=== PATIENT | male | born 1975 ===

== ENCOUNTER 2016-09-27 14:05 | Emergency (ER) | payer SELFPAY ==
[2016-09-27 14:45] VITALS: BP 110/82
--- NOTE | 2016-09-27 15:36 | UC ---
Throat Pain/Nasal Mati HPI - HPI Summary HPI Summary: 41 yo male with sore throat and sinus pressure and pain for 1-2 days chills diarrhea x 1 - History of Current Complaint Chief Complaint: UCRespiratory Stated Complaint: SORE THROAT DIARRHEA Time Seen by Provider: 09/27/16 15:25 Hx Obtained From: Patient Onset/Duration: Gradual Onset, Lasting Days Severity: Moderate Pain Intensity: 4 Pain Scale Used: 0-10 Numeric Cough: Nonproductive Associated Signs & Symptoms: Positive: Sinus Discomfort, Nasal Discharge - Epiglottits Risk Factors Epiglottis Risk Factors: Negative - Allergies/Home Medications Allergies/Adverse Reactions: Allergies Allergy/AdvReac Type Severity Reaction Status Date / Time No Known Allergies Allergy Verified 09/27/16 14:45 PMH/Surg Hx/FS Hx/Imm Hx Previously Healthy: Yes - Surgical History Surgical History: None - Family History Known Family History: Positive: Cardiac Disease, Hypertension, Diabetes - Social History Alcohol Use: Occasionally Substance Use Type: None Smoking Status (MU): Former Smoker Review of Systems Constitutional: Chills, Fatigue Skin: Negative Eyes: Negative ENT: Sore Throat, Nasal Discharge Respiratory: Cough Cardiovascular: Negative Gastrointestinal: Diarrhea - x 1 Genitourinary: Negative Motor: Negative Neurovascular: Negative Musculoskeletal: Negative Neurological: Negative Psychological: Negative All Other Systems Reviewed And Are Negative: Yes Physical Exam Triage Information Reviewed: Yes Appearance: Well-Appearing, No Pain Distress, Well-Nourished Vital Signs: Initial Vital Signs Temp 99.5 F 09/27/16 14:42 Pulse 80 09/27/16 14:42 Resp 16 09/27/16 14:42 BP 110/82 09/27/16 14:42 Pulse Ox 98 09/27/16 14:42 Eye Exam: Normal Eyes: Positive: Conjunctiva Clear ENT: Positive: Hearing grossly normal, Pharyngeal erythema, Nasal congestion, Nasal drainage, TMs normal. Negative: Tonsillar exudate, Trismus, Muffled/ hoarse voice Dental: Negative: Dental Fracture @, Abscess @ Neck: Positive: Supple, Nontender, No Lymphadenopathy Respiratory: Positive: Lungs clear, Normal breath sounds, No respiratory distress Cardiovascular: Positive: RRR, No Murmur Abdomen Description: Positive: Nontender, No Organomegaly. Negative: CVA Tenderness (R), CVA Tenderness (L) Bowel Sounds: Positive: Present Musculoskeletal: Positive: ROM Intact, No Edema Neurological: Positive: Alert Psychological Exam: Normal Skin Exam: Normal Throat Pain/Nasal Course/Dx - Differential Dx/Diagnosis Provider Diagnoses: acute pharyngitis. sinusitis Discharge - Discharge Plan Condition: Stable Disposition: HOME Prescriptions: Cefuroxime Axetil [Ceftin 250 MG] 250 mg PO BID #20 tab Patient Education Materials: Sinusitis (ED) Forms: *Work Release Additional Instructions: rest fluids warm facial compresses recheck in 5 days if not better
== END 2016-09-27 15:50 | disposition home or self-care (01) ==
LOC: UCEAST 14:05
DX: J02.9 Acute pharyngitis, unspecified (principal); J32.9 Chronic sinusitis, unspecified; Z87.891 Personal history of nicotine dependence
CPT/HCPCS: 99202; G0463

== ENCOUNTER 2016-10-07 20:24 | Inpatient (IN) | payer SELFPAY ==
[2016-10-07] MEDS ORDERED: NS 0.9% 1000 ML* 1,000 ML IV ONE (21:09)
[2016-10-07] MEDS ORDERED: Ondansetron INJ* 2 MG/ML VIAL IV ONE (21:09)
[2016-10-07] MEDS ORDERED: Morphine INJ* 4 MG/ML 1 ML CARPUJECT IV ONE (21:09)
[2016-10-07 22:03] LABS: Hematocrit 43 % (42-52); Hemoglobin 14.5 g/dl (14.0-18.0); Mean Corpuscular HGB Conc 34 g/dl (31-36); Mean Corpuscular Hemoglobin 31 pg (27-31); Mean Corpuscular Volume 91 fL (80-94); Mean Platelet Volume 8 um3 (7.4-10.4); Red Blood Count 4.73 10^6/ul (4.0-5.4); Red Cell Distribution Width 13 % (10.5-15); White Blood Count 18.2 10^3/ul (3.5-10.8)
[2016-10-07 22:05] LABS: Add Diff/Slide Review? Slide Review Added; Comments Flag Yes; Urine Bilirubin Negative (Negative); Urine Glucose Negative (Negative); Urine Nitrite Negative (Negative)
[2016-10-07 22:15] LABS: Albumin 4.1 g/dL (3.2-5.2); BUN/Creatinine Ratio 17.1 (8-20); Calcium 9.1 mg/dL (8.6-10.3); EGFR African American 133.2 (>60); EGFR Non-African American 103.5 (>60); Globulin 2.8 g/dL (2-4); Potassium 3.5 mmol/L (3.5-5.0); Total Bilirubin 0.8 mg/dL (0.2-1.0); Total Protein 6.9 g/dL (6.4-8.9)
[2016-10-07] MEDS ORDERED: Iohexol 300* (CONTRAST) 10 ML SDV IV ONE (22:52)
--- NOTE | 2016-10-07 22:52 | RAD ---
Indication: Left lower quadrant pain. 2 views of the chest including dual energy PA views demonstrate no mediastinal shift. Heart is of normal size and configuration. Lung bhatti demonstrate no pleural fluid, pneumonia or pneumothorax. IMPRESSION: No active cardiopulmonary disease is noted.
[2016-10-08] MEDS ORDERED: Levofloxacin 500 MG IVPREMIX(* 500 MG/100 ML BAG IVPB ONE (00:31)
[2016-10-08] MEDS ORDERED: metroNIDAZOLE IV 500 MG/100ML* 500 MG/100 ML BAG IVPB ONE (00:32)
--- NOTE | 2016-10-08 00:49 | HP ---
H&P (Free Text) History and Physical: PCP: none Date/Time of Evaluation: 10/08/2016 0200 CC: LLQ abdominal pain HPI: Mr Lozano is a 41YO healthy male finishing a course of cefuroxime for acute sinusitis who presents reporting onset 10/07 AM of LLQ cramping abdominal pain which over the course of the morning became severe and associated with a fever of 101 for which he presents. He has had some nausea and diarrhea, but no emesis , chest pain, SOB, or other issues. He denies black or bloody diarrhea. Work up reveals sigmoid diverticulitis on CT which failed his course of cefuroxime prompting a request for admission. 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 SocHx: former social smoker, occasional light alcohol, daily marijuana; works as a hospital security officer; full code status FamHx: Mother: diverticulitis ROS: as above, otherwise reviewed and all were negative Constitutional: NAD, normally developed, well-nourished white male vitals: Vital Signs Temp 37.5 C 10/08/16 01:59 Pulse 85 10/08/16 00:30 Resp 16 10/08/16 01:12 BP 115/66 10/08/16 00:30 Pulse Ox 94 10/08/16 00:30 Intake & Output 10/07/16 10/07/16 10/08/16 11:59 23:59 11:59 Intake Total 1002 100 Balance 1002 100 Weight 72.575 kg Intake: IV Fluids 1002 100 HEENM: atraumatic; sclera/conjunctiva: non-icteric/clear; hearing: intact; oropharynx: clear, mucosa moist Neck: soft tissue: non-tender; thyroid: normal Pulmonary: clear to auscultation bilaterally, good aeration, no accessory muscle use CV: RR/RR, normal S1S2, no carotid bruit, no jugular venous distention, 2+ B DP/ PT, no edema Abdominal: soft, non-distended, moderate to severe LLQ with light rebound and voluntary guarding but no rigidity, normoactive bowel sounds, no hepatosplenomegaly or masses, no costovertebral angle tenderness Musculoskeletal: general: grossly intact; gait: stable Integumental: normal appearance and texture of exposed skin Psychiatric orientation: AA&O to PPTS affect: calm mood: pleasant eye contact: good content: reliable responses: timely insight: good Testing: Lab Results 10/07/16 10/07/16 10/07/16 Range/Units 21:25 21:25 21:25 WBC 18.2 H (3.5-10.8) 10^3/ul RBC 4.73 (4.0-5.4) 10^6/ul Hgb 14.5 (14.0-18.0) g/dl Hct 43 (42-52) % MCV 91 (80-94) fL MCH 31 (27-31) pg MCHC 34 (31-36) g/dl RDW 13 (10.5-15) % Plt Count 348 (150-450) 10^3/ul MPV 8 (7.4-10.4) um3 Neut % (Auto) 82.4 (38-83) % Lymph % (Auto) 6.7 L (25-47) % [place] % (Auto) 9.7 H (1-9) % Eos % (Auto) 1.0 (0-6) % Baso % (Auto) 0.2 (0-2) % Absolute Neuts (auto) 15.0 H (1.5-7.7) 10^3/ul Absolute Lymphs (auto) 1.2 (1.0-4.8) 10^3/ul Absolute Monos (auto) 1.8 H (0-0.8) 10^3/ul Absolute Eos (auto) 0.2 (0-0.6) 10^3/ul Absolute Basos (auto) 0 (0-0.2) 10^3/ul Absolute Nucleated RBC 0 10^3/ul Nucleated RBC % 0 INR (Anticoag Therapy) (0.89-1.11) APTT (26.0-36.3) seconds Sodium 134 (133-145) mmol/L Potassium 3.5 (3.5-5.0) mmol/L Chloride 101 (101-111) mmol/L Carbon Dioxide 24 (22-32) mmol/L Anion Gap 9 (2-11) mmol/L BUN 14 (6-24) mg/dL Creatinine 0.82 (0.67-1.17) mg/dL Est GFR ( Amer) 133.2 (>60) Est GFR (Non-Af Amer) 103.5 (>60) BUN/Creatinine Ratio 17.1 (8-20) Glucose 92 (70-100) mg/dL Lactic Acid (0.5-2.0) mmol/L Calcium 9.1 (8.6-10.3) mg/dL Total Bilirubin 0.80 (0.2-1.0) mg/dL AST 18 (13-39) U/L ALT 21 (7-52) U/L Alkaline Phosphatase 54 (34-104) U/L Total Protein 6.9 (6.4-8.9) g/dL Albumin 4.1 (3.2-5.2) g/dL Globulin 2.8 (2-4) g/dL Albumin/Globulin Ratio 1.5 (1-3) Lipase 21 (11.0-82.0) U/L Urine Color Yellow Urine Appearance Clear Urine pH 6.0 (5-9) Ur Specific [place] 1.017 (1.010-1.030) Urine Protein Negative (Negative) Urine Ketones Trace H (Negative) Urine Blood Negative (Negative) Urine Nitrate Negative (Negative) Urine Bilirubin Negative (Negative) Urine Urobilinogen Negative (Negative) Ur Leukocyte Esterase Negative (Negative) Urine Glucose Negative (Negative) Influenza A (Rapid) (Negative) Influenza B (Rapid) (Negative) 10/07/16 10/07/16 10/07/16 Range/Units 21:25 21:25 22:07 WBC (3.5-10.8) 10^3/ul RBC (4.0-5.4) 10^6/ul Hgb (14.0-18.0) g/dl Hct (42-52) % MCV (80-94) fL MCH (27-31) pg MCHC (31-36) g/dl RDW (10.5-15) % Plt Count (150-450) 10^3/ul MPV (7.4-10.4) um3 Neut % (Auto) (38-83) % Lymph % (Auto) (25-47) % [place] % (Auto) (1-9) % Eos % (Auto) (0-6) % Baso % (Auto) (0-2) % Absolute Neuts (auto) (1.5-7.7) 10^3/ul Absolute Lymphs (auto) (1.0-4.8) 10^3/ul Absolute Monos (auto) (0-0.8) 10^3/ul Absolute Eos (auto) (0-0.6) 10^3/ul Absolute Basos (auto) (0-0.2) 10^3/ul Absolute Nucleated RBC 10^3/ul Nucleated RBC % INR (Anticoag Therapy) 0.97 (0.89-1.11) APTT 27.4 (26.0-36.3) seconds Sodium (133-145) mmol/L Potassium (3.5-5.0) mmol/L Chloride (101-111) mmol/L Carbon Dioxide (22-32) mmol/L Anion Gap (2-11) mmol/L BUN (6-24) mg/dL Creatinine (0.67-1.17) mg/dL Est GFR ( Amer) (>60) Est GFR (Non-Af Amer) (>60) BUN/Creatinine Ratio (8-20) Glucose (70-100) mg/dL Lactic Acid 0.7 (0.5-2.0) mmol/L Calcium (8.6-10.3) mg/dL Total Bilirubin (0.2-1.0) mg/dL AST (13-39) U/L ALT (7-52) U/L Alkaline Phosphatase (34-104) U/L Total Protein (6.4-8.9) g/dL Albumin (3.2-5.2) g/dL Globulin (2-4) g/dL Albumin/Globulin Ratio (1-3) Lipase (11.0-82.0) U/L Urine Color Urine Appearance Urine pH (5-9) Ur Specific [place] (1.010-1.030) Urine Protein (Negative) Urine Ketones (Negative) Urine Blood (Negative) Urine Nitrate (Negative) Urine Bilirubin (Negative) Urine Urobilinogen (Negative) Ur Leukocyte Esterase (Negative) Urine Glucose (Negative) Influenza A (Rapid) Negative (Negative) Influenza B (Rapid) Negative (Negative) CXR, personally reviewed: IMPRESSION: No active cardiopulmonary disease is noted. CT abd/pel WO, personally reviewed: Impression: Acute diverticulitis of the proximal sigmoid colon. Impression: 41M presenting with acute diverticulitis after treatment for acute sinusitis via cefuroxime DIAGNOSIS & PLAN Primary sigmoid diverticulitis : IV levofloxacin & metronidazole : IVFs : blood CX : pain control : supportive care Admission Rational: inpatient for medical management of diverticulitis failed outpatient ABX DVTp: ZOLTAN Code Status: full
--- NOTE | 2016-10-08 00:57 | ED ---
Sudeep Pisano [place], scribed for Marbin Mckenzie on 10/07/16 at 2113 . Abdominal Pain/Male - HPI Summary HPI Summary: Patient is a 41 y/o male who presents to the ED with abd pain located in LLQ. He reports diarrhea, lightheadedness, and a fever about an hour ago. He denies any blood in his stool, any coughing, or CP. He reports a sinus infection 10 days ago and is on the verge of finishing his abx. He denies smoking Tobacco and states he has no had EtOH in a long time. - History of Current Complaint Chief Complaint: EDAbdPain Stated Complaint: LOWER LEFT ABD PAIN, FEVER Time Seen by Provider: 10/07/16 20:40 Hx Obtained From: Patient Onset/Duration: Gradual Onset, Lasting Hours Pain Intensity: 10 Pain Scale Used: 0-10 Numeric Aggravating Factor(s): Nothing Alleviating Factor(s): Nothing Associated Signs And Symptoms: Positive: Fever, Diarrhea, Other - Lightheadedness.. Negative: Cough, Chest Pain, Blood in Stool - Allergies/Home Medications Allergies/Adverse Reactions: Allergies Allergy/AdvReac Type Severity Reaction Status Date / Time No Known Allergies Allergy Verified 10/08/16 00:54 PMH/Surg Hx/FS Hx/Imm Hx Infectious Disease History: No Infectious Disease History: Denies: Traveled Outside the [place] in Last 30 Days - Family History Known Family History: Positive: Cardiac Disease, Hypertension, Diabetes - Social History Alcohol Use: Occasionally Substance Use Type: Reports: None Hx Tobacco Use: Yes Smoking Status (MU): Former Smoker Review of Systems Positive: Fever Negative: Cough Positive: Diarrhea Neurological: Other - Lightheadedness. All Other Systems Reviewed And Are Negative: Yes Physical Exam Triage Information Reviewed: Yes Vital Signs On Initial Exam: Initial Vitals Temp Pulse Resp BP Pulse Ox 99.0 F 106 20 118/70 97 10/07/16 20:25 10/07/16 20:25 10/07/16 20:25 10/07/16 20:25 10/07/16 20:25 Vital Signs Reviewed: Yes Appearance: Positive: Well-Appearing, No Pain Distress Skin: Positive: Warm, Skin Color Reflects Adequate Perfusion, Dry Head/Face: Positive: Normal Head/Face Inspection Eyes: Positive: EOMI, STAN Neck: Positive: Supple, Nontender Respiratory/Lung Sounds: Positive: Clear to Auscultation, Breath Sounds Present Cardiovascular: Positive: RRR, Pulses are Symmetrical in both Upper and Lower Extremities Abdomen Description: Positive: Other: - LLQ tenderness. Bowel Sounds: Positive: Present Musculoskeletal: Positive: Normal, Strength/ROM Intact Neurological: Positive: Normal, Sensory/Motor Intact, Alert, Oriented to Person Place, Time Diagnostics - Vital Signs Vital Signs Temp Pulse Resp BP Pulse Ox 10/07/16 20:25 99.0 F 106 20 118/70 97 - Laboratory Lab Results: Lab Results 10/07/16 10/07/16 10/07/16 Range/Units 21:25 21:25 21:25 WBC 18.2 H (3.5-10.8) 10^3/ul RBC 4.73 (4.0-5.4) 10^6/ul Hgb 14.5 (14.0-18.0) g/dl Hct 43 (42-52) % MCV 91 (80-94) fL MCH 31 (27-31) pg MCHC 34 (31-36) g/dl RDW 13 (10.5-15) % Plt Count 348 (150-450) 10^3/ul MPV 8 (7.4-10.4) um3 Neut % (Auto) 82.4 (38-83) % Lymph % (Auto) 6.7 L (25-47) % [place] % (Auto) 9.7 H (1-9) % Eos % (Auto) 1.0 (0-6) % Baso % (Auto) 0.2 (0-2) % Absolute Neuts (auto) 15.0 H (1.5-7.7) 10^3/ul Absolute Lymphs (auto) 1.2 (1.0-4.8) 10^3/ul Absolute Monos (auto) 1.8 H (0-0.8) 10^3/ul Absolute Eos (auto) 0.2 (0-0.6) 10^3/ul Absolute Basos (auto) 0 (0-0.2) 10^3/ul Absolute Nucleated RBC 0 10^3/ul Nucleated RBC % 0 INR (Anticoag Therapy) (0.89-1.11) APTT (26.0-36.3) seconds Sodium 134 (133-145) mmol/L Potassium 3.5 (3.5-5.0) mmol/L Chloride 101 (101-111) mmol/L Carbon Dioxide 24 (22-32) mmol/L Anion Gap 9 (2-11) mmol/L BUN 14 (6-24) mg/dL Creatinine 0.82 (0.67-1.17) mg/dL Est GFR ( Amer) 133.2 (>60) Est GFR (Non-Af Amer) 103.5 (>60) BUN/Creatinine Ratio 17.1 (8-20) Glucose 92 (70-100) mg/dL Lactic Acid (0.5-2.0) mmol/L Calcium 9.1 (8.6-10.3) mg/dL Total Bilirubin 0.80 (0.2-1.0) mg/dL AST 18 (13-39) U/L ALT 21 (7-52) U/L Alkaline Phosphatase 54 (34-104) U/L Total Protein 6.9 (6.4-8.9) g/dL Albumin 4.1 (3.2-5.2) g/dL Globulin 2.8 (2-4) g/dL Albumin/Globulin Ratio 1.5 (1-3) Lipase 21 (11.0-82.0) U/L Urine Color Yellow Urine Appearance Clear Urine pH 6.0 (5-9) Ur Specific [place] 1.017 (1.010-1.030) Urine Protein Negative (Negative) Urine Ketones Trace H (Negative) Urine Blood Negative (Negative) Urine Nitrate Negative (Negative) Urine Bilirubin Negative (Negative) Urine Urobilinogen Negative (Negative) Ur Leukocyte Esterase Negative (Negative) Urine Glucose Negative (Negative) Influenza A (Rapid) (Negative) Influenza B (Rapid) (Negative) 10/07/16 10/07/16 10/07/16 Range/Units 21:25 21:25 22:07 WBC (3.5-10.8) 10^3/ul RBC (4.0-5.4) 10^6/ul Hgb (14.0-18.0) g/dl Hct (42-52) % MCV (80-94) fL MCH (27-31) pg MCHC (31-36) g/dl RDW (10.5-15) % Plt Count (150-450) 10^3/ul MPV (7.4-10.4) um3 Neut % (Auto) (38-83) % Lymph % (Auto) (25-47) % [place] % (Auto) (1-9) % Eos % (Auto) (0-6) % Baso % (Auto) (0-2) % Absolute Neuts (auto) (1.5-7.7) 10^3/ul Absolute Lymphs (auto) (1.0-4.8) 10^3/ul Absolute Monos (auto) (0-0.8) 10^3/ul Absolute Eos (auto) (0-0.6) 10^3/ul Absolute Basos (auto) (0-0.2) 10^3/ul Absolute Nucleated RBC 10^3/ul Nucleated RBC % INR (Anticoag Therapy) 0.97 (0.89-1.11) APTT 27.4 (26.0-36.3) seconds Sodium (133-145) mmol/L Potassium (3.5-5.0) mmol/L Chloride (101-111) mmol/L Carbon Dioxide (22-32) mmol/L Anion Gap (2-11) mmol/L BUN (6-24) mg/dL Creatinine (0.67-1.17) mg/dL Est GFR ( Amer) (>60) Est GFR (Non-Af Amer) (>60) BUN/Creatinine Ratio (8-20) Glucose (70-100) mg/dL Lactic Acid 0.7 (0.5-2.0) mmol/L Calcium (8.6-10.3) mg/dL Total Bilirubin (0.2-1.0) mg/dL AST (13-39) U/L ALT (7-52) U/L Alkaline Phosphatase (34-104) U/L Total Protein (6.4-8.9) g/dL Albumin (3.2-5.2) g/dL Globulin (2-4) g/dL Albumin/Globulin Ratio (1-3) Lipase (11.0-82.0) U/L Urine Color Urine Appearance Urine pH (5-9) Ur Specific [place] (1.010-1.030) Urine Protein (Negative) Urine Ketones (Negative) Urine Blood (Negative) Urine Nitrate (Negative) Urine Bilirubin (Negative) Urine Urobilinogen (Negative) Ur Leukocyte Esterase (Negative) Urine Glucose (Negative) Influenza A (Rapid) Negative (Negative) Influenza B (Rapid) Negative (Negative) Result Diagrams: 10/07/16 21:25 10/07/16 21:25 Lab Statement: Any lab studies that have been ordered have been reviewed, and results considered in the medical decision making process. - Radiology CXR Radiology Interpretation Completed By: Radiologist - IMPRESSION: No active cardiopulmonary disease is noted. - CT ABD/PELVIS CT Interpretation Completed By: Radiologist - Acute diverticulits of the proximal sigmoid colon. Re-Evaluation - Re-Evaluation First Eval Re-Evaluation Time: 00:32 Comment: Informed pt of CT result. Pt is agreeable to plan. Abdominal Pain Fem Course/Dx - Diagnoses Provider Diagnoses: Diverticulitis - Provider Notifications Discussed Care Of Patient With: Dr. Rodríguez (Hospitalist) @ 0038. Will admit. Discharge - Discharge Plan Condition: Stable Disposition: ADMITTED TO [facility] The documentation as recorded by the Sudeep baez Salem accurately reflects the service I personally performed and the decisions made by Magaly ramirez Emmanuel.
[2016-10-08] MEDS ORDERED: Morphine INJ* 4 MG/ML 1 ML CARPUJECT IV ONE (00:58)
[2016-10-08] MEDS ORDERED: Levofloxacin 750 MG IVPREMIX(* 750 MG/150 ML BAG IVPB ONE (00:58)
[2016-10-08] MEDS ORDERED: Acetaminophen TAB* 325 MG PO ONE (01:02)
[2016-10-08] MEDS ORDERED: Albuterol 2.5 MG/3 ML NEB.SOL* (0.083%) INH PRN (01:49)
[2016-10-08] MEDS ORDERED: Melatonin (NF) 3 MG TAB PO PRN (01:50)
[2016-10-08] MEDS: HYDROmorphone INJ* 1 MG/ML CARPUJECT SYRINGE IV PRN ×3 (02:30→06:30)
[2016-10-08] MEDS: Ondansetron INJ* 2 MG/ML VIAL IV PRN ×2 (02:51→12:05)
[2016-10-08] MEDS: NS 0.9% 1000 ML* 1,000 ML IV SCH ×3 (03:19→21:26)
[2016-10-08] MEDS: Omeprazole CAP* 20 MG PO SCH (05:39)
[2016-10-08 07:01] LABS: Hematocrit 43 % (42-52); Hemoglobin 14.2 g/dl (14.0-18.0); Mean Corpuscular HGB Conc 33 g/dl (31-36); Mean Corpuscular Hemoglobin 31 pg (27-31); Mean Corpuscular Volume 92 fL (80-94); Mean Platelet Volume 8 um3 (7.4-10.4); Red Blood Count 4.63 10^6/ul (4.0-5.4); Red Cell Distribution Width 13 % (10.5-15); White Blood Count 14.2 10^3/ul (3.5-10.8)
--- NOTE | 2016-10-08 07:10 | RAD ---
INDICATION: Abdominal pain COMPARISON: None TECHNIQUE: Axial source images were obtained from the hemidiaphragms to the symphysis pubis following administration of oral and intravenous contrast. 97 mL Omnipaque 300 was utilized. Coronal and sagittal reconstructed images were acquired. Lung bases: The lung bases are clear. Liver: The liver is normal in size. There are no masses. There is no ductal dilatation. Gallbladder: There are no calcified gallstones. There is no evidence of wall thickening or pericholecystic fluid. Spleen: The spleen is normal in size. There are no masses. Pancreas: There is no focal pancreatic mass or ductal dilatation. Adrenal glands: There is no evidence of adrenal mass. Kidneys: The kidneys are normal in size and position. There are prompt nephrograms and there is prompt excretion bilaterally. There are no renal parenchymal masses. There is no evidence of nephrolithiasis. Adenopathy: There is no evidence of adenopathy by size criteria. Fluid collections: There are no free or localized fluid collections. Vessels:There are no significant atherosclerotic changes involving the aorta. There is no focal aneurysm. The iliac vessels are normal in caliber. The IVC appears normal. GI tract: There are no acute abnormalities of the upper GI tract. There is moderate stool within colon with scattered diverticula with mild bowel wall thickening and perienteric inflammatory change at the junction of the descending and sigmoid colon. Findings are compatible with mild acute diverticulitis. There are no findings for obstruction or perforation. Pelvic organs: The prostate and seminal vesicles appear normal Bladder: There are no bladder masses. Abdominal and pelvic soft tissues: The extraperitoneal abdominal and pelvic soft tissues appear normal.. Osseous structures: There are no acute osseous findings. Other: None IMPRESSION: CT FINDINGS OF MILD ACUTE DIVERTICULITIS
[2016-10-08] MEDS: metroNIDAZOLE IV 500 MG/100ML* 500 MG/100 ML BAG IVPB SCH ×2 (08:53→16:55)
--- NOTE | 2016-10-08 12:07 | PN ---
Subjective Date of Service: 10/08/16 Interval History: This is an otherwise healthy 41 yo male who presented yesterday with acute diverticulitis. He recently completed a course of cefuroxime for acute sinusitis. Patient reports feeling nauseated but abdominal pain has improved. He has had a normal BM this am that was formed and without blood. He denies any other acute complaints Objective Active Medications: Acetaminophen (Tylenol Tab*) 650 mg PO Q6H PRN PRN Reason: FEVER/PAIN Albuterol (Ventolin 2.5 Mg/3 Ml Neb.Karin*) 2.5 mg INH Q2H PRN PRN Reason: SOB/WHEEZING Hydromorphone HCl (Dilaudid Iv*) 1 mg IV Q2H PRN PRN Reason: PAIN Last Admin: 10/08/16 06:30 Dose: 1 mg Levofloxacin/Dextrose (Levaquin 750 Mg Ivpremix(*)) 750 mg in 150 mls @ 100 mls /hr IVPB Q24H [facility] Sodium Chloride (Ns 0.9% 1000 Ml*) 1,000 mls @ 125 mls/hr IV PER RATE [facility] Last Admin: 10/08/16 03:19 Dose: 125 mls/hr Metronidazole/Sodium Chloride (Flagyl 500 Mg Ivpb*) 500 mg in 100 mls @ 100 mls /hr IVPB Q8H [facility] Last Admin: 10/08/16 08:53 Dose: 100 mls/hr Melatonin (Melatonin (Nf)) 3 mg PO BEDTIME PRN; Protocol PRN Reason: Sleep Omeprazole (Prilosec Cap*) 20 mg PO DAILY@0600 [facility] Last Admin: 10/08/16 05:39 Dose: 20 mg Ondansetron HCl (Zofran Inj*) 4 mg IV Q6H PRN PRN Reason: NAUSEA Last Admin: 10/08/16 02:51 Dose: 4 mg Vital Signs: Temp Pulse Resp BP Pulse Ox 100.3 F 96 16 117/64 97 10/08/16 11:41 10/08/16 11:41 10/08/16 11:41 10/08/16 11:41 10/08/16 11:41 Appearance: Mildly ill appearing young gentleman in NAD Respiratory: Symmetrical Chest Expansion and Respiratory Effort, Clear to Auscultation Cardiovascular: NL Sounds; No Murmurs; No JVD, RRR Abdominal: - - soft, BM present, LLQ TTP Skin: No Rash or Ulcers Neurological: Alert and Oriented x 3 Result Diagrams: 10/08/16 06:28 10/07/16 21:25 Additional Lab and Data: Vital Signs: Temp Pulse Resp BP Pulse Ox 100.3 F 96 16 117/64 97 10/08/16 11:41 10/08/16 11:41 10/08/16 11:41 10/08/16 11:41 10/08/16 11:41 Diagnostic Imaging: CT abd/pelvis - bowel wall thickening and inflammatory changes in the distal descending colon and prox sigmoid Assess/Plan/Problems-Billing Assessment: This is an otherwise healthy 41 yo gentleman who presented with acute abdominal pain. CT shows signs of acute diverticulitis. - Patient Problems (1) Acute diverticulitis Comment: Noted improvement in pain since admission Now nauseated and still intermittently febrile Plan to cont Levaquin and Flagyl with clear liquid diet Status and Disposition: Patient requires continued hospital stay. Anticipate likely dc tomorrow.
[2016-10-08] MEDS ORDERED: LYSINE HCL 500 MG PO SCH (12:45)
[2016-10-08] MEDS: Acetaminophen TAB* 325 MG PO PRN (14:26)
[2016-10-09] MEDS: Acetaminophen TAB* 325 MG PO PRN (00:01)
[2016-10-09] MEDS ORDERED: Levofloxacin 750 MG IVPREMIX(* 750 MG/150 ML BAG IVPB SCH (00:01)
[2016-10-09] MEDS: metroNIDAZOLE IV 500 MG/100ML* 500 MG/100 ML BAG IVPB SCH ×2 (01:43→08:20)
[2016-10-09] MEDS: Omeprazole CAP* 20 MG PO SCH (05:47)
[2016-10-09] MEDS: NS 0.9% 1000 ML* 1,000 ML IV SCH (08:20)
[2016-10-09 08:34] VITALS: BP 113/59
[2016-10-09 08:42] LABS: Hematocrit 44 % (42-52); Hemoglobin 14.6 g/dl (14.0-18.0); Mean Corpuscular HGB Conc 34 g/dl (31-36); Mean Corpuscular Hemoglobin 31 pg (27-31); Mean Corpuscular Volume 93 fL (80-94); Mean Platelet Volume 8 um3 (7.4-10.4); Red Blood Count 4.72 10^6/ul (4.0-5.4); Red Cell Distribution Width 13 % (10.5-15); White Blood Count 13.4 10^3/ul (3.5-10.8)
[2016-10-09 09:43] LABS: BUN/Creatinine Ratio 7.9 (8-20); Calcium 8.9 mg/dL (8.6-10.3); EGFR African American 121.1 (>60); EGFR Non-African American 94.2 (>60); Potassium 3.9 mmol/L (3.5-5.0)
--- NOTE | 2016-10-09 13:26 | DS ---
DISCHARGE SUMMARY: DATE OF ADMISSION: 10/08/16 DATE OF DISCHARGE: 10/09/16 PRIMARY CARE PROVIDER: None. DISCHARGING PROVIDER: BERTHA Portillo SUPERVISING PHYSICIAN: Naima Dunne MD * (DICTATED BY BERTHA PORTILLO) PRIMARY DISCHARGE DIAGNOSIS: Acute diverticulitis. HOSPITAL IMAGIN. CT of the abdomen and pelvis shows evidence of mild acute diverticulitis with bowel wall thickening and some inflammatory changes near the distal descending colon and proximal sigmoid. 2. Chest x-ray shows no acute process. HOSPITAL COURSE: This is an otherwise healthy 41-year-old gentleman who presented to the emergency department with rather acute onset of severe left lower quadrant pain. The patient had recently been treated for sinusitis with cefuroxime and had just completed his course of antibiotics prior to onset of symptoms. He had associated nausea and diarrhea. When he reached the emergency department, he was febrile with a temperature of 101.3 degrees Fahrenheit with rather significant leukocytosis of 18,200. No electrolyte disturbances. Influenza testing was negative and urinalysis was unremarkable. CT scan was suggestive of acute diverticulitis. Due to his recent antibiotic use, which would generally cover most GI pathogens responsible for diverticulitis, decision was made to admit for IV antibiotics for acute diverticulitis. The patient was placed on IV Levaquin and metronidazole. He was intermittently febrile throughout his hospital stay. His white blood cell count trended down, was measured at 13,400 at the time of discharge. His pain improved, but still had some tenderness to palpation in the left lower quadrant at the time of discharge, but markedly improved. He was tolerating a soft diet and had normal bowel movements without blood. DISPOSITION: The patient is being discharged to home where he lives with his . Prescription written for an additional 10 days of oral Cipro and Flagyl. The patient is in the process of applying for a health insurance and does not currently have a primary care provider. He is instructed to followup at Urgent Care or the emergency department with any increasing pain or new fever. BERTHA PORTILLO [id number]/[facility] #: [id number] [facility]
== END 2016-10-09 11:05 | disposition home or self-care (01) | DRG 392 ==
LOC: ED 20:24 → SSU 10-08 01:47
PROVIDERS: ADMIT Hospitalist; ATTEND Internal Medicine
DX: K57.32 Diverticulitis of large intestine without perforation or abscess without bleeding (principal); Z87.891 Personal history of nicotine dependence
CPT/HCPCS: 36415; 71020; 74177; 80048; 80053; 81003; 83605; 83690; 85025; 85610; 85730; 87040; 87502; A9270-GY; J1170; J2270; J2405; J3490; Q9967

== ENCOUNTER 2017-01-22 10:17 | Emergency (ER) | payer SELFPAY ==
[2017-01-22 10:22] VITALS: BP 119/78
--- NOTE | 2017-01-22 11:34 | RAD ---
Indication: LEFT testicular pain. Comparison: No relevant prior exams available on the [facility] PACS for comparison. Technique: Scrotal ultrasound. Report: 3.8 x 2.3 x 2.3 cm RIGHT testicle demonstrates normal echotexture and vascularity. No intratesticular lesions evident. 1.5 x 1.4 cm RIGHT epididymis head with normal range vascularity is remarkable for a 1.0 x 1.4 x 1.1 cm epididymal head cyst or spermatocele. Physiologic small volume of RIGHT scrotal fluid. Negative for varicocele. 4.1 x 2.5 x 2.5 cm LEFT testicle demonstrates normal echotexture and vascularity. Sharply circumscribed 0.6 cm diameter simple appearing intratesticular cyst. No complex cystic or solid lesions of the LEFT testicle evident. 1.0 x 1.1 cm LEFT epididymis head demonstrates normal vascularity. Large LEFT hydrocele. Negative for varicocele. IMPRESSION: 1. No evidence for testicular torsion, epididymoorchitis, or presence of a suspicious focal testicular lesion. 2. 1.4 cm RIGHT epididymal head cyst or spermatocele. 3. 0.6 cm simple cyst of the LEFT testicle. No suspicious complex cystic or solid LEFT intratesticular lesions. Consider reassessment of the low suspicion LEFT testicular cyst with ultrasound in 6-12 months. 4. Large LEFT hydrocele.
[2017-01-22] MEDS ORDERED: Ketorolac INJ* 60 MG/2 ML VIAL IM ONE (12:23)
[2017-01-22 12:45] LABS: Urine Bilirubin Negative (Negative); Urine Glucose Negative (Negative); Urine Nitrite Negative (Negative)
--- NOTE | 2017-01-24 15:51 | ED ---
Elizabeth Pisano Auryana, scribed for Kd Schumacher MD on 01/22/17 at 1042 . GI/ HPI - HPI Summary HPI Summary: 41 y/o male presents to ED with left groin pain. The pain is waxing and waning and currently rated at a 8/10 that was improved with Vicadin. Pain is associated with mild swelling in his left testicle and mild nausea, but patient denies fevers/chills, any discharge from the penis, diarrhea, or problems with his penis and testicles. 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 No history of STDs. PMHx diverticulitis, was admitted to the ED, given antibiotics and discharged home as stable. Patient quit smoking, with occasional EtOH and marijuana use. - History of Current Complaint Chief Complaint: EDGeneral Stated Complaint: LEFT LOWER ABD PAIN Hx Obtained From: Patient Onset/Duration: Started Days Ago Timing: Intermittent Severity: Moderate Current Severity: Moderate Pain Intensity: 8 Location of Pain: LLQ, Groin - Near pelvic shaft (left side) Associated Signs and Symptoms: Positive: Nausea - Mild, from pain. Negative: Vomiting, Diarrhea, Fever, Chills Additional Signs & Symptoms: Negative: STD Aggravating Factor(s): Movement - Allergy/Home Medications Allergies/Adverse Reactions: Allergies Allergy/AdvReac Type Severity Reaction Status Date / Time No Known Allergies Allergy Verified 10/08/16 00:54 PMH/Surg Hx/FS Hx/Imm Hx GI History: Reports: Hx Diverticulosis - Treated in ED 2 days ago Neurological History: Reports: Hx Migraine Psychiatric History: Reports: Hx Anxiety - Surgical History Surgery Procedure, Year, and Place: Colon fistula Infectious Disease History: No - No history of STDs Infectious Disease History: Denies: Traveled Outside the [place] in Last 30 Days - Family History Known Family History: Positive: Cardiac Disease, Hypertension, Diabetes, Other - Lung cancer, colon cancer - Social History Alcohol Use: Daily Hx Substance Use: Yes - Occasional Marijuana use Substance Use Type: Reports: Marijuana Substance Use Comment - Amount & Last Used: 10/07/16 Hx Tobacco Use: Yes Smoking Status (MU): Former Smoker Review of Systems Constitutional: Negative Negative: Fever, Chills Eyes: Negative ENT: Negative Cardiovascular: Negative Respiratory: Negative Positive: Nausea - Mild nausea due to pain Positive: see HPI, pain - left groin pain near pelvic shaft. Negative: discharge Musculoskeletal: Negative Skin: Negative Neurological: Negative Psychological: Normal All Other Systems Reviewed And Are Negative: Yes Physical Exam - Summary Physical Exam Summary: VITAL SIGNS: Reviewed. GENERAL: Patient is a well-developed and nourished male who is lying comfortable in the stretcher. Patient is not in any acute respiratory distress. HEAD AND FACE: Normocephalic and atraumatic. EYES: PERRLA, EOMI x 2, No injected conjunctiva. EARS: Hearing grossly intact. Ear canals and tympanic membranes are WNL. MOUTH: Oropharynx within normal limits. NECK: Supple, trachea is midline, no adenopathy, no JVD. CHEST: Symmetric, no tenderness at palpation LUNGS: Clear to auscultation bilaterally. No wheezing or crackles. CVS: RRR, S1 and S2 present, no murmurs or gallops appreciated. ABDOMEN: Soft, tenderness in left side of pelvic area near the shaft of the penis. No signs of distention. Positive bowel sounds. No rebound no guarding, and no masses palpated. No abdominal bruit or pulsations. EXTREMITIES: FROM in all major joints, no edema, no cyanosis or clubbing. NEURO: Alert and oriented x 3. No acute neurological deficits. Speech is normal. SKIN: Dry and warm : Circumcised penis, both testicles are descended. No masses are appreciated. Positive cremasteric reflex. Triage Information Reviewed: Yes Vital Signs On Initial Exam: Initial Vitals Temp Pulse Resp BP Pulse Ox 98.8 F 110 20 119/78 98 01/22/17 10:18 01/22/17 10:18 01/22/17 10:18 01/22/17 10:18 01/22/17 10:18 Vital Signs Reviewed: Yes Diagnostics - Vital Signs Vital Signs Temp Pulse Resp BP Pulse Ox 01/22/17 10:21 98.8 F 83 20 119/78 98 01/22/17 10:18 98.8 F 110 20 119/78 98 - Laboratory Lab Results: Lab Results 01/22/17 01/22/17 Range/Units 10:57 10:57 Urine Color Yellow Urine Appearance Cloudy Urine pH 5.0 (5-9) Ur Specific [place] 1.025 (1.010-1.030) Urine Protein Negative (Negative) Urine Ketones Negative (Negative) Urine Blood Negative (Negative) Urine Nitrate Negative (Negative) Urine Bilirubin Negative (Negative) Urine Urobilinogen Negative (Negative) Ur Leukocyte Esterase Negative (Negative) Urine Glucose Negative (Negative) Urine Ascorbic Acid * H (Negative) C.trachomatis (Amp Det) Negative (Negative) N.gonorrhoeae (Amp Det) Negative (Negative) Lab Statement: Any lab studies that have been ordered have been reviewed, and results considered in the medical decision making process. - Additional Comments Diagnostic Additional Comments: US TESTICULAR IMPRESSION: 1. No evidence for testicular torsion, epididymoorchitis, or presence of a suspicious focal testicular lesion. 2. 1.4 cm RIGHT epididymal head cyst or spermatocele. 3. 0.6 cm simple cyst of the LEFT testicle. No suspicious complex cystic or solid LEFT intratesticular lesions. Consider reassessment of the low suspicion LEFT testicular cyst with ultrasound in 6-12 months. 4. Large LEFT hydrocele. GIGU Course/Dx - Course Assessment/Plan: UA (-) UTI. I did send for gonorrhea and chlamydia testing, but results were not returned today. Patient was instructed to follow up for results with PCP. Testicular US shows 1. No evidence for testicular torsion, epididymoorchitis, or presence of a suspicious focal testicular lesion. 2. 1.4 cm RIGHT epididymal head cyst or spermatocele. 3. 0.6 cm simple cyst of the LEFT testicle. No suspicious complex cystic or solid LEFT intratesticular lesions. Consider reassessment of the low suspicion LEFT testicular cyst with ultrasound in 6-12 months. 4. Large LEFT hydrocele. I believe the reason for the patients testicular pain secondary to hydrocele. Pt doesnt show inguinal hernia, no abd pain, no susp for acute diverti. Given toridol, sx. improved. Asked to wear briefs and follow up with urology. Pt agrees. Return if develops more pain, n/v/ fevers or chill. Understand and agrees. I discussed all the findings and test results with the patient. Patient was instructed to return to the emergency room immediately if any of the symptoms return or worsens . Plan of care was discussed with the patient and understands and agrees. All questions were answered at patient satisfaction. There were no further complaints or concerns. Lung exam before discharge: CTA B/L. Good air exchange. No wheezing or crackles heard. CVS: S1 and S2 present. No murmurs appreciated. Patient is alert and oriented x 3. Patient is hemodynamically stable. Patient will be discharged home with follow up hospital librarian in the next 2-3 days - Diagnoses Differential Diagnoses - Male: STD, Testicular Torsion, Urethritis Provider Diagnoses: Hydrocele Discharge - Discharge Plan Condition: Stable Disposition: HOME Patient Education Materials: Hydrocele (ED) Forms: *Work Release Referrals: Non Staff,Doctor [Primary Care Provider] - 3 Days (Please follow up in 2-3 days. ) The documentation as recorded by the Elizabeth baez Auryana accurately reflects the service I personally performed and the decisions made by Endy ramirez Walter, MD.
== END 2017-01-22 13:44 | disposition home or self-care (01) ==
LOC: ED 10:17
DX: N43.3 Hydrocele, unspecified (principal); R10.32 Left lower quadrant pain
CPT/HCPCS: 76870; 81003; 87491; 87591; 96372; 99282; J1885

== ENCOUNTER 2017-09-09 15:00 | Emergency (ER) | payer SELFPAY | END 2017-09-09 16:25 | disposition left against medical advice (07) | LOC: UCEAST 15:00 | DX: Z53.21 Procedure and treatment not carried out due to patient leaving prior to being seen by health care provider (principal) ==

== ENCOUNTER 2018-01-09 13:28 | Emergency (ER) | payer SELFPAY ==
[2018-01-09 13:54] VITALS: BP 112/77
--- NOTE | 2018-01-09 14:45 | UC ---
Giancarlo Pisano Stephanie, scribed for Beth Hayes MD on 01/09/18 at 1413 . General HPI - HPI Summary HPI Summary: The pt is a 42 y/o M presenting to c/o sore throat starting 01/07/18, progressing to cough productive dark sputum, subj fever, myalgias. No sob / cp. + fatigue. Has been working several hours over the past week. GI upset. No rash. + sinus congestion. - History of Current Complaint Chief Complaint: UCRespiratory Stated Complaint: URI Time Seen by Provider: 01/09/18 13:59 Hx Obtained From: Patient Onset/Duration: Gradual Onset, Lasting Days - 2, Still Present Timing: Constant Current Severity: Moderate Pain Intensity: 6 Associated Signs & Symptoms: Positive: Cough, Headache, Other - myalgia - Allergy/Home Medications Allergies/Adverse Reactions: Allergies Allergy/AdvReac Type Severity Reaction Status Date / Time No Known Allergies Allergy Verified 10/08/16 00:54 PMH/Surg Hx/FS Hx/Imm Hx Previously Healthy: No Respiratory History: Bronchitis - Surgical History Surgical History: Yes Surgery Procedure, Year, and Place: Colon fistula - Family History Known Family History: Positive: Cardiac Disease, Hypertension, Diabetes, Other - Lung cancer, colon cancer - Social History Occupation: Employed Full-time Lives: With Family Alcohol Use: Weekly Substance Use Type: Marijuana Substance Use Comment - Amount & Last Used: 10/07/16 Smoking Status (MU): Former Smoker Have You Smoked in the Last Year: No - Immunization History Most Recent Influenza Vaccination: Never Most Recent Tetanus Shot: Unknown Most Recent Pneumonia Vaccination: Never, not indicated Review of Systems Constitutional: Fatigue Skin: Negative Eyes: Negative ENT: Sore Throat, Sinus Congestion Respiratory: Cough Cardiovascular: Other - chest congestion Gastrointestinal: Negative Genitourinary: Negative Motor: Negative Neurovascular: Negative Musculoskeletal: Myalgia Neurological: Headache Psychological: Negative All Other Systems Reviewed And Are Negative: Yes Physical Exam Triage Information Reviewed: Yes Appearance: Well-Nourished - sitting up, looks tired but NAD. Vital Signs: Initial Vital Signs Temp 98.5 F 01/09/18 13:48 Pulse 83 01/09/18 13:48 Resp 16 01/09/18 13:48 BP 112/77 01/09/18 13:48 Pulse Ox 100 01/09/18 13:48 Vital Signs Reviewed: Yes Eye Exam: Normal - grossly normal, mild scleral injection ENT Exam: Other ENT: Positive: Pharyngeal erythema - post pharynx red, no sores / exudates appreciated. uvula midline., Nasal congestion, Other - L TM dull, [place]. R TM not visible d/t cerumen impaction Neck exam: Normal Neck: Positive: Supple, Nontender, No Lymphadenopathy Respiratory Exam: Other - BS full, equal. No rtx, no resp distress. + rhonchorus cough with exp wheeze. Respiratory: Positive: Chest non-tender, No respiratory distress, No accessory muscle use Cardiovascular Exam: Normal Cardiovascular: Positive: RRR, No Murmur, Pulses Normal, Brisk Capillary Refill Abdominal Exam: Normal Abdomen Description: Positive: Nontender Musculoskeletal Exam: Normal Neurological Exam: Normal - grossly nonfocal Psychological Exam: Normal - conversing easily and appropriately Skin Exam: Normal - no visible or reported rash. non-diaphoretic Course/Dx - Course Course Of Treatment: R eac flush. Influenza n.s. neg. Blood gluc 93mg / dl. Reviewed coa / tx plan. Questions as posed answered to the best of my ability. - Differential Dx - Multi-Symptom Provider Diagnoses: Acute bronchitis with wheezing. cerumen impaction Discharge - Sign-Out/Discharge Documenting (check all that apply): Discharge/Admit/Transfer - Discharge - Discharge Plan Condition: Stable Disposition: HOME Prescriptions: Albuterol HFA INHALER* [Ventolin HFA Inhaler*] 1 - 2 puff INH Q4H PRN #1 mdi PRN Reason: Wheezing Azithromyxin BOBBY (NF) [Z-Bobby (Zithromax) 250 mg tabs #6] 2 tab PO .TODAY, THEN 1 DAILY #6 tab Referrals: [facility] [Outside] Additional Instructions: Please follow up with your primary care provider in 1-2 weeks. Seek medical attention for worse or new problems in the meantime. - Billing Disposition and Condition Condition: STABLE Disposition: HOME The documentation as recorded by the Giancarlo baez Stephanie accurately reflects the service I personally performed and the decisions made by me, Beth Hayes MD.
== END 2018-01-09 14:53 | disposition home or self-care (01) ==
LOC: UCEAST 13:28
DX: J20.9 Acute bronchitis, unspecified (principal); R06.2 Wheezing; H61.21 Impacted cerumen, right ear
CPT/HCPCS: 87502; 99212; G0463